=== PATIENT | male | born 1975 | race Caucasian/White ===

== ENCOUNTER 2016-05-19 05:47 | Emergency (ER) | payer MEDICARE ==
[~2016-05-19] VITALS: Ht 182.9 cm; Wt 70.0 kg
[2016-05-19 05:50] VITALS: BP 122/72; PULSE 113; RESP 16; TEMP 97.9; O2SAT 96
[2016-05-19] MEDS ORDERED: DEPA500T3 PO (06:36)
[2016-05-19] MEDS ORDERED: LITH450T PO (06:36)
[2016-05-19] MEDS ORDERED: PROP20TA3 PO (06:36)
--- NOTE | 2016-05-19 06:46 | PD ---
HPI Chief Complaint: Psychiatric Symptoms Time Seen by Provider: 06:40 Travel History International Travel<30 days: No Contact w/Intl Traveler<30days: No Traveled to known affect area: No History of Present Illness HPI 41-year-old male with history of bipolar disorder presents voluntarily for psychiatric evaluation. Over the past few days she has not been sleeping, he has been feeling paranoid, he is concerned that he is going to . He feels like he probably runs the world although he is unsure. He reports that he just moved here from [place] over the past few days and he quit taking his Seroquel , lithium 3 days ago. He is not currently have a psychiatrist that he sees. He does not like the side effects that Seroquel caused him. He denies suicidal ideation but feels like something bad might happen to him if he leaves here. Denies any medical issues at this time. Denies any drug or alcohol use. Denies any hallucinations. PFSH Past Medical History Bipolar Disorder: Yes Hypertension: Yes Medical other: Yes (auspergers syndrome) Past Surgical History Other Surgery: Yes (right eyelid and testicular tortion) Social History Alcohol Use: No Tobacco Use: No Allergies-Medications (Allergen,Severity, Reaction): Coded Allergies: Seroquel (Verified Allergy, Severe, 05/19/16) Reported Meds & Prescriptions Reported Meds & Active Scripts Active Reported Ron[place]by Carbonate ER (Ron[place]by Carbonate) 450 Mg Tab 900 Mg PO BID Depakote ER (Divalproex Sodium) 500 Mg Milli 1,000 Mg PO DAILY Propranolol (Propranolol HCl) 20 Mg Tab 20 Mg PO Q8HR Review of Systems Except as stated in HPI: all other systems reviewed are Neg Physical Exam Narrative GENERAL: Well-developed well-nourished male in no acute distress SKIN: Warm and dry. HEAD: Atraumatic. Normocephalic. EYES: Pupils equal and round. No scleral icterus. No injection or drainage. ENT: No nasal bleeding or discharge. Mucous membranes pink and moist. NECK: Trachea midline. No JVD. CARDIOVASCULAR: Regular rate and rhythm. No murmur appreciated. RESPIRATORY: No accessory muscle use. Clear to auscultation. Breath sounds equal bilaterally. GASTROINTESTINAL: Abdomen soft, non-tender, nondistended. Hepatic and splenic margins not palpable. MUSCULOSKELETAL: No obvious deformities. NEUROLOGICAL: Awake and alert. No obvious cranial nerve deficits. Motor grossly within normal limits. Normal speech. PSYCHIATRIC: Insight and judgment are limited. Elevated mood, making delusional statements Data Data Last Documented VS Vital Signs Date Time Temp Pulse Resp B/P Pulse Ox O2 Delivery O2 Flow Rate FiO2 05/19/16 10:03 80 20 118/68 96 Room Air 05/19/16 05:50 97.9 Orders Complete Blood Count With Diff (05/19/16 06:27) Comprehensive Metabolic Panel (05/19/16 06:27) Drug Screen, Random Urine (05/19/16 06:27) Alcohol (Ethanol) (05/19/16 06:27) Psych Screen (05/19/16 06:27) Ron[place]by (Li) (05/19/16 06:45) Labs Laboratory Tests Test 05/19/16 06:45 White Blood Count 11.5 TH/MM3 Red Blood Count 4.75 MIL/MM3 Hemoglobin 14.0 GM/DL Hematocrit 41.1 % Mean Corpuscular Volume 86.5 FL Mean Corpuscular Hemoglobin 29.4 PG Mean Corpuscular Hemoglobin 33.9 % Concent Red Cell Distribution Width 12.1 % Platelet Count 169 TH/MM3 Mean Platelet Volume 8.2 FL Neutrophils (%) (Auto) 79.4 % Lymphocytes (%) (Auto) 11.6 % Monocytes (%) (Auto) 8.7 % Eosinophils (%) (Auto) 0.2 % Basophils (%) (Auto) 0.1 % Neutrophils # (Auto) 9.2 TH/MM3 Lymphocytes # (Auto) 1.3 TH/MM3 Monocytes # (Auto) 1.0 TH/MM3 Eosinophils # (Auto) 0.0 TH/MM3 Basophils # (Auto) 0.0 TH/MM3 CBC Comment DIFF FINAL Differential Comment Sodium Level 141 MEQ/L Potassium Level 3.6 MEQ/L Chloride Level 107 MEQ/L Carbon Dioxide Level 25.8 MEQ/L Anion Gap 8 MEQ/L Blood Urea Nitrogen 8 MG/DL Creatinine 0.92 MG/DL Estimat Glomerular Filtration 91 ML/MIN Rate Random Glucose 92 MG/DL Calcium Level 8.4 MG/DL Total Bilirubin 0.6 MG/DL Aspartate Amino Transf 44 U/L (AST/SGOT) Alanine Aminotransferase 28 U/L (ALT/SGPT) Alkaline Phosphatase 78 U/L Total Protein 7.0 GM/DL Albumin 3.8 GM/DL Ron[place]by Level LESS THAN 0.1 MEQ/L Ethyl Alcohol Level LESS THAN 3 MG/DL MDM Medical Decision Making Medical Screen Exam Complete: Yes Emergency Medical Condition: Yes Medical Record Reviewed: Yes Differential Diagnosis Medication noncompliance, acute psychosis, substance induced mood disorder, bipolar disorder, schizophrenia Narrative Course 41-year-old male with history of bipolar disorder presents for psychiatric evaluation after discontinuing his lithium and Seroquel 3 days ago. Mental health screening discussed with the patient. Psychiatric screen ordered. The patient was medically cleared at the end of my shift at 7 AM. Diagnosis Primary Impression: Bipolar 1 disorder Stefan Rodriguez May 19, 2016 06:45
[2016-05-19 07:03] LABS: AUTOMATED NEUTROPHIL # 9.2 TH/MM3 (1.8-7.7); BASOPHIL % 0.1 % (0.0-2.0); EOSINOPHIL % 0.2 % (0.0-4.0); HEMATOCRIT 41.1 % (39.0-51.0); HEMO FLAGS DIFF FINAL; LYMPH % 11.6 % (9.0-44.0); LYMPHOCYTE # 1.3 TH/MM3 (1.0-4.8); MEAN CELL VOLUME 86.5 FL (80.0-100.0); MEAN CORPUSCULAR HEMOGLOBIN 29.4 PG (27.0-34.0); MEAN CORPUSCULAR HGB CONC 33.9 % (32.0-36.0); MONO % 8.7 % (0.0-8.0); NEUT % 79.4 % (16.0-70.0); PLATELET COUNT 169 TH/MM3 (150-450); RED BLOOD COUNT 4.75 MIL/MM3 (4.50-5.90); RED CELL DISTRIBUTION WIDTH 12.1 % (11.6-17.2); WHITE BLOOD COUNT 11.5 TH/MM3 (4.0-11.0)
[2016-05-19 07:30] LABS: ANION GAP 8 MEQ/L (5-15); AST (GOT) 44 U/L (15-37); BICARBONATE 25.8 MEQ/L (21.0-32.0); BLOOD UREA NITROGEN 8 MG/DL (7-18); CHLORIDE 107 MEQ/L (98-107); GLOMERULAR FILTRATION RATE 91 ML/MIN (>89); POTASSIUM 3.6 MEQ/L (3.5-5.1); SODIUM (NA) 141 MEQ/L (136-145)
[2016-05-19 07:33] LABS: ALKALINE PHOSPHATASE 78 U/L (45-117); ALT (GPT) 28 U/L (12-78); TOTAL BILIRUBIN ADULT 0.6 MG/DL (0.2-1.0)
[2016-05-19 10:03] VITALS: BP 118/68; PULSE 80; RESP 20; O2SAT 96
== END 2016-05-19 11:25 | disposition home or self-care (01) ==
LOC: NEPA 05:47 → NEPJ 11:25
DX: F31.9 Bipolar disorder, unspecified (principal); I10 Essential (primary) hypertension; F84.5 Asperger's syndrome
CPT/HCPCS: 80053; 80178; 80320; 85025; 99283